=== PATIENT | male | born 1940 | race Caucasian/White ===

== ENCOUNTER → 2016-12-03 | Outpatient (CLI) | payer MEDICARE, OTHER ==
--- NOTE | ~2016-12-03 | US37 ---
[facility] A Service of [facility] & [facility] RADIOLOGY TEXT RESULTS PATIENT: JOSE R MCCAULEY LOCATION: CNIV : 41 UNIT #: [id number] AGE: [address]: Angel Coleman MD SEX: M ORDER DR: [id number] [facility] [address] [place], [place] [address] [id number] MR#: [id number] Acc #: [id number] NAME: JOSE R MCCAULEY : 1940 SEX: M STUDY DATE/TIME: 12/03/2016 10:15 UNIT: CNIV ROOM: STUDY DESCRIPTION: US Carotid W/Doppler Bilateral Attending Physician: Elsa Coleman M.D. Referring Physician: Elsa Coleman M.D. Ordering Physician: Elsa Coleman M.D. Primary Care Physician: No Primary Care Physician MEDICAL IMAGING REPORT This report is preliminary unless electronic signature is present DATE OF EXAMINATION 12/03/2016 EXAM Bilateral carotid duplex. CLINICAL HISTORY Hypertension, hyperlipidemia, CABG, heart disease. FINDINGS There is patent flow seen throughout the right common carotid, internal carotid, and external carotid arteries. There is irregular, heterogeneous, and echogenic plaque seen in the proximal aspect of the common carotid artery. There is also some focal plaque seen in the mid common carotid artery, as well. There is diffuse, homogeneous, and regular-appearing plaque seen in the right carotid bifurcation, external carotid artery, and internal carotid artery. The right common carotid artery peak velocity is 193 cm/sec at the midportion, the right internal carotid artery peak systolic/end-diastolic velocities are: Proximal 146/15 cm/sec, mid 145/17 cm/sec, distal 138/23 cm/sec. The right external carotid artery peak velocity is 70 cm/sec, the right vertebral artery has retrograde flow, and flow velocity is 117 cm/sec. The right ICA/CCA ratio is 0.8. There is patient flow seen throughout the left common carotid, internal carotid, and external carotid arteries. There is heavy calcification seen throughout the left common carotid artery. The left carotid bifurcation has diffuse, echogenic plaque extending to the external and internal carotid arteries. The left common carotid artery peak velocity is 129 cm/sec. The left internal carotid artery peak systolic/end-diastolic velocities are: Proximal 117/16 cm/sec, mid 143/20 cm/sec, distal 115/20 cm/sec. The left external carotid artery peak velocity is 185 cm/sec and [facility] A Service of [facility] & [facility] RADIOLOGY TEXT RESULTS PATIENT: JOSE R MCCAULEY LOCATION: CNIV : 41 UNIT #: [id number] AGE: [address]: Angel Coleman MD SEX: M ORDER DR: vertebral artery 55 cm/sec. The left ICA/CCA ratio is 0.7. 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 IMPRESSION 1. Elevated velocity of the right common carotid artery, which may suggest a moderate grade stenosis. 2. Right internal carotid artery has velocities consistent with 50% to 69% stenosis by duplex criteria. This finding is an increase from the 11/2014 study. 3. Elevated velocity of the left common carotid artery, also suggestive of a mild high-grade stenosis. Of note, a previously evaluated left common carotid to subclavian bypass graft from 11/2014 study was not evaluated today. 4. The left internal carotid artery has moderate atherosclerosis, consistent with 50% to 69% stenosis by duplex criteria. This is stable from the 11/2014 study. 5. 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 This was also seen on the 11/2014 study. 6. The left vertebral artery has antegrade flow. Dictated by... Abbe Bauer M.D. THIS IS AN ELECTRONICALLY VERIFIED REPORT Abbe Bauer M.D. at 12/04/2016 8:00 PM CHUY/yaneli TD: 12/03/2016 12:09 JOB #: [id number] MEDICAL IMAGING REPORT COPY
== END | disposition home or self-care (01) ==
LOC: CNIV 09:50
DX: R09.89 Other specified symptoms and signs involving the circulatory and respiratory systems (principal); I65.22 Occlusion and stenosis of left carotid artery
CPT/HCPCS: 93880